=== PATIENT | female | born 1990 | race Caucasian/White ===

== ENCOUNTER 2020-06-13 15:21 | Emergency (ER) | payer MEDICAID ==
[~2020-06-13] VITALS: Ht 149.9 cm; Wt 75.0 kg
[2020-06-13] MEDS ORDERED: PRED20TA PO (15:34)
[2020-06-13] MEDS ORDERED: BENZ-38 PO (15:34)
[2020-06-13] MEDS ORDERED: ALBU6.7H9 INH (15:34)
== END 2020-06-13 16:06 | disposition home or self-care (01) ==
LOC: ER 15:22
DX: J06.9 Acute upper respiratory infection, unspecified (principal); Z20.828 Contact with and (suspected) exposure to other viral communicable diseases; F17.200 Nicotine dependence, unspecified, uncomplicated; Z79.899 Other long term (current) drug therapy
CPT/HCPCS: 36415; 71045; 87635; 99284